=== PATIENT | female | born 1990 | race Hispanic/Latino ===

== ENCOUNTER 2017-03-22 10:23 | Emergency (ER) | payer MEDICAID ==
[2017-03-22] MEDS ORDERED: LIDOCAINE HCL 1% 20 ML VIAL ONE (10:49)
[2017-03-22] MEDS ORDERED: SODIUM CHLORIDE 0.9% 1000ML 1,000 ML IV ONE (10:49)
[2017-03-22] MEDS ORDERED: ONDANSETRON HCL 4 MG/2 ML VIAL ONE (10:49)
[2017-03-22] MEDS ORDERED: HYDROMORPHONE HCL 2 MG/ML VIAL ONE (10:50)
[2017-03-22 10:54] LABS: BASOPHILS % (AUTO) 0.1 % (0.0-5.0); EOSINOPHILS % (AUTO) 1.9 % (0.0-8.0); HEMATOCRIT 37.2 % (36-48); LYMPHOCYTES % (AUTO) 14.1 % (21.0-51.0); MEAN CORPUSCULAR HEMOGLOBIN 26.7 pg (27.0-33.0); MEAN CORPUSCULAR HGB CONC 33.3 g/dL (32.0-36.0); MEAN CORPUSCULAR VOLUME 80.2 fL (79-99); MONOCYTES % (AUTO) 7.7 % (3.0-13.0); NEUTROPHILS % (AUTO) 76.2 % (40.0-77.0); PLATELET COUNT (AUTO) 219 K/uL (130-400); RED BLOOD CELL COUNT(AUTO) 4.64 MIL/uL (4.00-5.50); RED CELL DISTRIBUTION WIDTH 14.7 % (11.0-15.5); WHITE BLOOD COUNT (AUTO) 13.8 K/uL (4.8-10.8)
[2017-03-22 11:01] LABS: CREATININE 0.9 mg/dL (0.5-1.5); POTASSIUM 3.8 mmol/L (3.5-5.1)
[2017-03-22] MEDS ORDERED: CEPHALEXIN 500 MG CAPSULE ONE (11:24)
[2017-03-22] MEDS ORDERED: SULFAMETHOX-TMP DS 800/160 TAB ONE (11:24)
== END 2017-03-22 11:38 | disposition home or self-care (01) ==
LOC: EDH 10:23
DX: L02.415 Cutaneous abscess of right lower limb (principal); Z72.0 Tobacco use; Z87.442 Personal history of urinary calculi
CPT/HCPCS: 10060; 36415; 80048; 85025; 96361; 96374; 96375; 99284; J1170; J2405; J7030

== ENCOUNTER 2017-03-24 17:16 | Emergency (ER) | payer MEDICAID ==
[2017-03-24] MEDS ORDERED: ONDANSETRON ODT 4 MG TAB ONE (17:48)
[2017-03-24] MEDS ORDERED: MORPHINE SULFATE 8 MG/ML VIAL ONE (17:49)
== END 2017-03-24 19:26 | disposition home or self-care (01) ==
LOC: EDH 17:16
DX: L02.415 Cutaneous abscess of right lower limb (principal)
CPT/HCPCS: 76882; 96372; 99284; J2270